=== PATIENT | male | born 2005 | race Caucasian/White ===

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

== ENCOUNTER → 2024-01-19 | Outpatient (REF) | payer OTHER, MEDICAID, BC ==
[2024-01-19 19:35] LABS: APPEARANCE, URINE CLEAR (CLEAR); BACTERIA, URINE AUTO NEGATIVE (NEGATIVE); BILIRUBIN, URINE AUTO NEGATIVE (NEGATIVE); BLOOD, URINE BLOOD NEGATIVE (NEGATIVE); COLOR, URINE YELLOW (YELLOW); GLUCOSE, URINE (UA) AUTO NEGATIVE (NEGATIVE); KETONE, URINE AUTO NEGATIVE (NEGATIVE); LEUKOCYTE ESTERASE, URINE AUTO NEGATIVE (NEGATIVE); NITRITE, URINE AUTO NEGATIVE (NEGATIVE); PROTEIN, URINE AUTO NEGATIVE (NEGATIVE); RBC, URINE AUTO 0 /HPF (0-3); SPECIFIC GRAVITY URINE AUTO 1.018 (1.002-1.035); SQUAMOUS EPITHELIAL CELL UR AU 0 /HPF (0-6); UROBILINOGEN, URINE AUTO 0.2 mg/dL (0.0-2.0); WBC, URINE AUTO 0 /HPF (0-3)
[2024-01-19 21:16] LABS: Trichomonas vaginalis (AMP) NOT DETECTED (NEGATIVE)
[2024-01-19 21:39] LABS: GC DNA AMPLIFICATION NEGATIVE (NEGATIVE)
== END ==
LOC: M LAB REF 18:49
PROVIDERS: ATTEND Physician Assistant
DX: N39.0 Urinary tract infection, site not specified (principal)

== ENCOUNTER → 2024-02-06 | Outpatient (CLI) | payer BC, MEDICAID | LOC: M RAD 08:45 | PROVIDERS: ATTEND Student in an Organized Health Care Education/Training Program | DX: R10.30 Lower abdominal pain, unspecified (principal) ==

== ENCOUNTER → 2024-04-06 | Outpatient (CLI) | payer BC | LOC: M WUC 11:31 | PROVIDERS: ATTEND Family Medicine Addiction Medicine | DX: M54.50 Low back pain, unspecified (principal) ==

== ENCOUNTER → 2024-04-06 | Outpatient (REF) | payer BC ==
[2024-04-06 18:47] LABS: GC DNA AMPLIFICATION NEGATIVE (NEGATIVE)
== END ==
LOC: M LAB REF 16:48
PROVIDERS: ATTEND Physician Assistant
DX: R10.30 Lower abdominal pain, unspecified (principal)